=== PATIENT | female | born 1975 | race Two or more races ===

== ENCOUNTER 2020-03-22 13:32 | Outpatient (REF) | payer OTHER, SELFPAY | END 2020-03-22 13:33 | disposition home or self-care (01) | LOC: HO.LAB 13:32 | PROVIDERS: Visit Provider Internal Medicine | DX: Z20.828 Contact with and (suspected) exposure to other viral communicable diseases (principal) | CPT/HCPCS: 87635 ==

== ENCOUNTER 2023-08-17 07:27 | Outpatient (REF) | payer SELFPAY | END 2023-08-17 07:28 | disposition home or self-care (01) | LOC: CF 07:27 | DX: Z13.89 Encounter for screening for other disorder (principal) ==

== ENCOUNTER 2023-08-17 13:19 | Outpatient (AMB) | payer OTHER, SELFPAY ==
[2023-08-17 13:26] VITALS: BP 136/78; PULSE 94; O2SAT 98; BMI 28.2
--- NOTE | 2023-08-17 13:26 | A.OFFVIS_ITS ---
Intake Vital Signs 08/17/23 13:26 Height 5 ft 3 in Weight 159 lb BMI 28.2 BP 136/78 Blood Pressure Location Rt brachial Position Sitting Pulse 94 Pulse Source Pulse Oximeter Pulse Oximetry (%) 98 Oxygen Delivery Method Room Air Intake Visit Reasons: Abnormal CT scan Receiving Clerk Required: No Structural Iron Erector: Structural Iron Erector offered & declined Accompanied by: Self / Same As Patient Allergies lisinopril Adverse Reaction (Intermediate, Uncoded 08/17/23 13:28) Cough Medication List - Last Reconciled 08/17/23 by Isela Batres LPN atorvastatin 20 mg PO DAILY dulaglutide (Trulicity) 1.5 mg subcut QWEEK duloxetine 60 mg PO DAILY hydroxyzine HCl 25 mg PO DAILY loratadine 10 mg PO DAILY metformin ER 500 mg PO BID omeprazole 40 mg PO DAILY valsartan 40 mg PO BID HPI Abnormal CT scan HPI Details Shahla is a pleasant 48-year-old female, minimal smoker, with underlying diabetes and fibromyalgia. She was referred by PCP for pulmonary evaluation after abnormal abdominal CT. CT revealed multiple thin walled cysts. No prior imaging to compare. At the time of the CT she denied any respiratory symptoms suggestive of infection. She does report dyspnea on moderate exertion as well as intermittent dry cough. She denies any history of asthma. She reports multiple family members with autoimmune conditions including lupus. She denies any skin lesions or rashes. She denies any joint pain. She denies any occupational exposures. She reports mild seasonal allergies. [facility] Social History (Updated 08/17/23 @ 13:30 by Isela Batres LPN) Patient Tobacco Use Status: Current someday Tobacco user Tobacco use type: Cigarette Review of Systems Const Denies chills, Denies excessive sweating, Denies fever(s), Denies headache(s) and Denies night sweats Eyes Denies dry eyes, Denies irritation and Denies itchy eyes ENT Reports Normal hearing present, Denies headache(s), Denies nasal congestion, Denies nasal discharge, Denies post nasal drip and Denies sore throat Card Denies chest pain, Denies chest pain at rest, Denies chest pain with activity, Denies claudication, Denies leg edema, Denies orthopnea and Denies paroxysmal nocturnal dyspnea Resp Denies chest congestion, Denies excessive phlegm production, Denies pain on inspiration, Denies pain with cough, Denies stridor and Denies wheezing Musc Denies myalgias Neuro Reports Normal hearing present and Denies headache(s) Endo Denies excessive sweating Bhargav/Lymph Denies lymphadenopathy Aller/Immun Denies itchy eyes, Denies seasonal rhinorrhea and Denies wheezing Physical Exam Vital Signs: Last Vital Signs Pulse 94 08/17/23 13:26 BP 136/78 08/17/23 13:26 Pulse Ox 98 08/17/23 13:26 Oxygen Delivery Method Room Air 08/17/23 13:26 BMI result Body Mass Index 28.2 Const General: cooperative, healthy appearing, comfortable, no acute distress, well developed and alert Orientation/consciousness: patient oriented x3 Limitations: no limitations HEENT Head: Yes normal to inspection, Yes normocephalic and Yes atraumatic Ears: hearing grossly normal bilaterally and external ears normal Eyes General: appearance normal, both eyes and all related structures Eyelids: Yes eyelids normal Sclerae: sclerae normal EOM: EOMs intact bilaterally Neck Neck: Yes normal visual inspection and Yes no lymphadenopathy Lymphatic: no lymphadenopathy noted Chest Chest palpation & inspection: normal inspection of the chest Resp Effort & Inspection: normal respiratory effort, able to speak in complete sentences, no audible wheezes, no cough, no stridor, not tachypneic, no tripod positioning and no use of accessory muscles Auscultation: clear to auscultation bilaterally Cardio Jugular venous distension: no JVD Rate: regular rate Rhythm: regular rhythm Skin Other: warm, dry General skin exam: no rashes or lesions noted Neuro General: patient oriented x3 Cranial nerves: Yes Normal hearing present Cognition (Neuro): normal cognition Gait exam (Neuro): Normal gait present Extrem General: Yes normal to inspection, Yes capillary refill normal, Yes no clubbing, cyanosis or edema and Yes no pedal edema Psych Appearance: grossly normal and well kempt Speech and movement: Normal speech and movement present and Clear speech present Affect: normal affect Attitude: cooperative Thought process: Normal thought process present Thought content: Normal thought content present Insight: Good insight present (Psych) Judgement: Good judgement present (Psych) Assessment & Plan Assessment & Plan (1) Multiple idiopathic cysts of lung: Code(s): J98.4 - Other disorders of lung (2) Dyspnea on exertion: Code(s): R06.09 - Other forms of dyspnea (3) Cough: Code(s): R05.9 - Cough, unspecified Plan Karley presents with incidental finding of thin walled cysts on recent abdominal CT. Will send for dedicated chest CT to get a better picture of possible underlying etiologies of cysts. Will send for PFT to assess for obstructive or restrictive defect, contributing to dyspnea and cough. Will send for labs to assess for connective tissue conditions associated with lung cysts as well as vascular endothelial growth factor D to assess for MULLEN. All questions were answered and patient is in agreement of plan. Will follow up to review results. Orders: Orders Other Ref Test - Misc 08/17/23 J98.4 - Other disorders of lung Complete Blood Count Auto Diff 08/17/23 J98.4 - Other disorders of lung Sjogren's Antibodies 08/17/23 J98.4 - Other disorders of lung MAXIMINO Reflex Titer and Pattern 08/17/23 J98.4 - Other disorders of lung Rheumatoid Factor 08/17/23 J98.4 - Other disorders of lung Coding Level of Care Code New Pt Level 4 (47313) Diagnoses Multiple idiopathic cysts of lung J98.4 Dyspnea on exertion R06.09 Cough R05.9
== END 2023-08-17 14:23 | disposition home or self-care (01) ==
PROVIDERS: PCP Physician Assistant Medical; Visit Provider Nurse Practitioner Family
DX: J98.4 Other disorders of lung (principal); R06.09 Other forms of dyspnea; R05.9 Cough, unspecified
CPT/HCPCS: 99204

== ENCOUNTER 2023-09-21 10:58 | Outpatient (REF) | payer OTHER, SELFPAY ==
[2023-09-21 09:30] VITALS: PULSE 105; RESP 16; O2SAT 97
--- NOTE | 2023-09-21 13:59 | PFT_ITS ---
Flows: FEV1: 94 % of predicted at 2.57 L FVC: 90 % of predicted at 3.05 L FEV1/FVC: 84 % Bronchodilator response: Present in small to medium airways only Volumes: Total lung capacity: 83 % of predicted at 4.18 L Residual volume: 81 % of predicted at 1.13 L Slow vital capacity: 83 % of predicted at 3.05 L Expiratory reserve volume: 82 % of predicted at 0.85 L Diffusion capacity: Normal Impression: No obstructive or restrictive ventilatory defect. No bronchodilator response except in small to medium airways. MTDD
== END 2023-09-21 10:59 | disposition home or self-care (01) ==
LOC: HO.RESP 10:58
PROVIDERS: Visit Provider Nurse Practitioner Family
DX: R05.9 Cough, unspecified (principal); R06.09 Other forms of dyspnea
CPT/HCPCS: 94010; 94640; 94727; 94729

== ENCOUNTER → 2023-09-21 13:59 | Outpatient (BNV) | payer OTHER, SELFPAY | PROVIDERS: Visit Provider Internal Medicine Pulmonary Disease | DX: R06.09 Other forms of dyspnea (principal) | CPT/HCPCS: 94060; 94727; 94729 ==

== ENCOUNTER 2023-11-22 16:34 | Outpatient (REF) | payer OTHER, SELFPAY ==
--- NOTE | ~2023-11-22 | CT_ITS ---
EXAMINATION: CT CHEST WITHOUT CONTRAST CLINICAL INFORMATION: Other disorders of the lungs. COMPARISON: 06/26/2023. TECHNIQUE: Multidetector volumetric CT imaging of the chest was done. Axial MIP volume rendering provided. Sagittal and coronal reformatted images were obtained. This CT examination was performed using dose optimization techniques as appropriate, variously including the following: *Automated exposure control *Adjustment of mA and/or kV according to patient size (this includes techniques or standardized protocols for targeted exams where dose is matched to indication/reason for exam; i.e. extremities or head) *Use of iterative reconstruction technique DLP: 137 mGy-cm FINDINGS: LUNGS: The lungs are clear with no evidence of inflammation or suspicious nodules. Emphysematous changes are seen with mild bronchial thickening. An area of linear scarring is noted at the left apex posteriorly (5:116). Calcified granulomas present right middle lobe (5:229). MEDIASTINUM: The mediastinum is normal. CORONARY ARTERY CALCIFICATION: None. PLEURA: There is no pleural effusion. No pleural mass or thickening. AXILLA chest wall: No lymphadenopathy. Bilateral breast calcifications are present. UPPER ABDOMEN: There is hepatic steatosis with focal fatty sparing around the gallbladder. OSSEOUS STRUCTURES: Unremarkable. CT/CT chest wo IV con IMPRESSION: 1. No suspicious pulmonary nodules are seen. 2. Incidental note made of emphysema, hepatic steatosis and bilateral breast calcifications. Fleischner guidelines were followed.
== END 2023-11-22 16:35 | disposition home or self-care (01) ==
LOC: HO.CT 16:34
PROVIDERS: Visit Provider Nurse Practitioner Family
DX: J98.4 Other disorders of lung (principal); R06.09 Other forms of dyspnea; R05.9 Cough, unspecified
CPT/HCPCS: 71250

== ENCOUNTER 2023-11-30 10:30 | Outpatient (AMB) | payer OTHER, SELFPAY ==
--- NOTE | 2023-11-30 10:49 | MHC.OFFVIS ---
Vital Signs 11/30/23 10:50 Height 5 ft 3 in Weight 155 lb 2 oz BMI 27.5 BP 130/88 Blood Pressure Location Rt brachial Position Sitting Pulse 92 Pulse Source Pulse Oximeter Pulse Oximetry (%) 97 Oxygen Delivery Method Room Air Intake Visit Reasons: dyspnea Allergies lisinopril Adverse Reaction (Intermediate, Uncoded 11/30/23 10:52) Cough HPI HPI dyspnea: Details: Shahla is a pleasant 48-year-old female, minimal smoker, with underlying diabetes and fibromyalgia. She was referred by PCP for pulmonary evaluation after abnormal abdominal CT revealed multiple thin walled cysts. At the last visit, she was sent for dedicated chest CT and presents today to review results. She was also sent for labs to assess for underlying connective tissues disease as well as MULLEN, which were all negative. Today she denies any respiratory symptoms. She denies any pertinent family history. She denies any visits to urgent care or hospitalizations. [facility] Social History Patient Tobacco Use Status: Current someday Tobacco user Tobacco use type: Cigarette Review of Systems Const Denies chills, Denies excessive sweating, Denies fever(s), Denies headache(s) and Denies night sweats Eyes Denies dry eyes, Denies irritation and Denies itchy eyes ENT Reports Normal hearing present and Denies headache(s) Card Denies chest pain, Denies chest pain at rest, Denies chest pain with activity, Denies claudication, Denies leg edema, Denies dyspnea, Denies dyspnea on exertion, Denies orthopnea and Denies paroxysmal nocturnal dyspnea Resp Denies chest congestion, Denies cough, Denies excessive phlegm production, Denies pain on inspiration, Denies pain with cough, Denies dyspnea, Denies dyspnea on exertion, Denies stridor and Denies wheezing Musc Denies myalgias Neuro Reports Normal hearing present and Denies headache(s) Endo Denies excessive sweating Bhargav/Lymph Denies lymphadenopathy Aller/Immun Denies itchy eyes, Denies seasonal rhinorrhea and Denies wheezing Physical Exam Vital Signs: Last Vital Signs Pulse 92 11/30/23 10:50 BP 130/88 11/30/23 10:50 Pulse Ox 97 11/30/23 10:50 Oxygen Delivery Method Room Air 11/30/23 10:50 BMI result Body Mass Index 27.5 Const General: cooperative, healthy appearing, comfortable, no acute distress, well developed and alert Orientation/consciousness: patient oriented x3 Limitations: no limitations HEENT Head: Yes normal to inspection, Yes normocephalic and Yes atraumatic Ears: hearing grossly normal bilaterally and external ears normal Eyes General: appearance normal, both eyes and all related structures Eyelids: Yes eyelids normal Sclerae: sclerae normal EOM: EOMs intact bilaterally Neck Neck: Yes normal visual inspection and Yes no lymphadenopathy Lymphatic: no lymphadenopathy noted Chest Chest palpation & inspection: normal inspection of the chest Resp Effort & Inspection: normal respiratory effort, able to speak in complete sentences, no audible wheezes, no cough, no stridor, not tachypneic, no tripod positioning and no use of accessory muscles Auscultation: clear to auscultation bilaterally Cardio Jugular venous distension: no JVD Rate: regular rate Rhythm: regular rhythm Skin Other: warm, dry General skin exam: no rashes or lesions noted Neuro General: patient oriented x3 Cranial nerves: Yes Normal hearing present Cognition (Neuro): normal cognition Gait exam (Neuro): Normal gait present Extrem General: Yes normal to inspection, Yes capillary refill normal, Yes no clubbing, cyanosis or edema and Yes no pedal edema Psych Appearance: grossly normal and well kempt Speech and movement: Normal speech and movement present and Clear speech present Affect: normal affect Attitude: cooperative Thought process: Normal thought process present Thought content: Normal thought content present Insight: Good insight present (Psych) Judgement: Good judgement present (Psych) Assessment & Plan Assessment & Plan (1) Multiple idiopathic cysts of lung: Code(s): J98.4 - Other disorders of lung Category: Medical Plan At this time Karley denies any respiratory symptoms. She is aware if symptoms develop, to call the office. We reviewed chest which revealed multiple thin walled cysts, although radiologist read as emphysema. Patient with minimal smoking history, will swab for alpha 1 antitrypsin deficiency. Given that patient is asymptomatic, labs are not suggestive of MULLEN or other underlying autoimmune conditions and no pertinent family history, will continue to observe at this time. Will send for repeat chest CT in one year. All questions were answered and patient is in agreement of plan. Will follow up to review results or sooner if needed. Coding Level of Care Code Est Pt Level 4 (06305) Diagnoses Multiple idiopathic cysts of lung J98.4
[2023-11-30 10:50] VITALS: BP 130/88; PULSE 92; O2SAT 97; BMI 27.5
== END 2023-11-30 13:08 | disposition home or self-care (01) ==
PROVIDERS: PCP Physician Assistant Medical; Visit Provider Nurse Practitioner Family
DX: J98.4 Other disorders of lung (principal)
CPT/HCPCS: 99214

== ENCOUNTER → 2023-11-30 10:30 | Outpatient (BNVA) | payer OTHER, SELFPAY | PROVIDERS: Visit Provider Nurse Practitioner Family ==

== ENCOUNTER 2024-10-23 14:27 | Outpatient (REF) | payer OTHER, SELFPAY ==
--- NOTE | ~2024-10-23 | CT_ITS ---
CLINICAL HISTORY: J98.4 - Other disorders of lung CT chest without contrast Comparison: CT/ID/SR - CT CHEST WO IV CON - 11/22/23 16:41 EDT Findings: The heart size is normal. The visualized thyroid and mediastinum are unremarkable. Breast calcifications again noted. There is mild centrilobular emphysema. No pulmonary nodules are noted. A calcified granuloma seen in the right upper lobe. Hepatic steatosis has apparently resolved. No acute fractures. IMPRESSION: 1. Interval resolution of hepatic steatosis. 2. Mild centrilobular emphysema. 3. No suspicious pulmonary nodules are noted. 4. Calcified granuloma right upper lobe. This document has been electronically signed by: Leodan Estrada MD on 10/24/2024 12:19:58
--- OUTSIDE RECORDS SUMMARY | 2024-10-23 14:31 | XMS_ITS | Clinical Summary ---
Author Organization [facility] it Address [address] [place] [address] Care Team Providers Care Service Worker Name Role Phone Unavailable Primary Care Provider Unavailabl e Medications DULoxetine (CYMBALTA) [address] capsule Take 1 capsule by mouth once daily 30 each 09/01/2024 Active Surgical History Surgery Date Site/Laterality Comments SECTION PROCEDURE: HISTORICAL ; COMMENT: 1992 BREAST BIOPSY PROCEDURE: MO BX BREAST NEEDLE CORE W/O IMAGING GUIDANCE SPX TUBAL LIGATION PROCEDURE: HISTORICAL TUBAL LIGATION BREAST BIOPSY Left PROCEDURE: BX BREAST; PERC NEEDLE CORE W/IMAG GUID; COMMENT: b9 BREAST SURGERY 2012 Left PROCEDURE: MO UNLISTED PROCEDURE BREAST; COMMENT: b9 Medical History Medical History Date Comments High cholesterol DX:High cholest nasim Family History Medical History Relation Name Comments Diabetes Father Hypertension Father Other cancer Father's side 1 leukemia Heart attack Father's side 2 Breast cancer Other m cousin 45 Diabetes Paternal Grandfather Diabetes Paternal Grandmother Relation Name Status Comments Brother Alive A&W Daughter 1 Alive A&W Daughter 2 Alive A&W Daughter 3 Alive A&W Father hypoglycemic ep isode, ?diabetic coma; DMII, HTN Father's side 1 Father's side 2 Mother Alive osteoporosis Other m cousin 45 Alive Paternal Grandfather Paternal Grandmother Sister Alive A&W Son Alive A&W Social History Tobacco Use Types Packs/Day Years Used Date Smoking Tobacco: Never Smokeless Tobacco: Never Alcohol Use Standard Drinks/Week Comments No 0 (1 standard drink = 0.6 oz pur e alcohol) Comments Unknown Sex and Gender Information Value Date Recorded Sex Assigned at Not on file Legal Sex Female 2:28 AM EST Gender Identity Not on file Sexual Orientation Not on file Obstetrics History Last Filed Vital Signs Vital Sign Reading Time Taken Comments Blood Pressure 108/68 07/10/2023 1:25 PM EST provider will rechk Pulse 106 07/10/2023 1:25 PM EST Temperature - - Respiratory Rate - - Oxygen Saturation - - Inhaled Oxygen Concentration - - Weight 70.8 kg (156 lb) 07/10/2023 1:25 PM EST Height 157.5 cm (5' 2 ) 07/10/2023 1:25 PM EST Body Mass Index 28.53 07/10/2023 1:25 PM EST Plan of Treatment Health Maintenance Due Date Last Done Comments Diabetes: Annual GFR (Glomerular Filtration Rate) 1976 Diabetes: Annual Foot Exam 1986 Diabetes: Annual Retina Eye Exam 1986 Hepatitis A Vaccines (1 of 2 - Risk 2-dose series) 1995 Hepatitis B Vaccines (1 of 3 - 19+ 3-dose series) 1995 Pneumococcal Vaccine: Pediatrics (0 to 5 Years) and At-Risk Patients (6 to 64 Years) (1 of 2 - PCV) 1995 Cervical Cancer Screening: Pap Smear 1997 Cholesterol Screening (Lipid Panel) 05/07/2022 Colorectal Cancer Screening: Colonoscopy 05/07/2022 Depression Screening 05/07/2022 HIV Screening 05/07/2022 Hepatitis C Screening 05/07/2022 Social Influencers of Health Screening 05/07/2022 Diabetes: Annual Urine Albumin-Creatinine Ratio (uACR) 05/20/2022 Diabetes: Blood Sugar Control Test (HGBA1C) 05/20/2022 COVID-19 Vaccine ( season) 2024 05/10/2021, 08/05/2020, 07/15/2020 Breast Cancer Screening 08/11/2024 08/12/19 23, 07/28/2022, 07/11/2022, Additional history exists Influenza Vaccine (Season Ended) 2025 DTaP,Tdap,and Td Vaccines (3 - Td or Tdap) 05/03/2031 05/03/2021, 12/07/2008 HIB Vaccines Aged Out No longer eligi ble based on patient's age to complete this topic HPV Vaccines Aged Out No longer eligi ble based on patient's age to complete this topic IPV Vaccines Aged Out No longer eligi ble based on patient's age to complete this topic MMR Vaccines Aged Out No longer eligi ble based on patient's age to complete this topic Meningococcal ACWY Vaccine Aged Out N o longer eligible based on patient's age to complete this topic Meningococcal B Vaccine Aged Out No l onger eligible based on patient's age to complete this topic RSV Immunization Patients Under 20 months Aged Out No longer eligible based on patient's age to complete this topic Varicella Vaccines Aged Out No longer eligible based on patient's age to complete this topic Procedures Procedure Name Priority Date/Time Associated Diagnosis Comments DX MAMMO INCL CAD BI Routine 08/11/2022 1:45 PM EST Other abnormal and inconclusive findings on diagnostic imaging of breast from Last 3 Months or Most Recently Relevant to Health Maintenance Results * DX MAMMO INCL CAD BI (08/11/2022 1:45 PM EST) Anatomical Region Laterality Modality Mammography 07/28/2022 2:08 PM EST Narrative 08/15/2022 2:10 PM EDT EXAM: Ultrasound guided core-needle biopsy of the right and left breast. HISTORY: Ultrasound-guided biopsy for right breast 6:00 mass and left breast 12:00 mass COMPARISON: Ultrasound from 07/28/2022 CONSENT: The time-out, which included the woman's full name, date of , description of the expected procedure and procedure site, was performed immediately before the procedure to confirm woman's identity. Informed consent was obtained. PROCEDURE: An ultrasound guided biopsy was performed for the right breast 6:00 mass. The patient was placed in the supine position and the lesion was localized using real-time sonography. The skin was prepped in the usual manner and draped. Subcutaneous lidocaine was administered at the expected entry site. Additional subcutaneous anesthesia was provided. A skin garfield was made using a scalpel. A 14-gauge spring breast biopsy needle was advanced to the preselected lesion. 4 core biopsy specimens were obtained and post-fire images documenting needle placement were recorded. Biopsy marker clip was inserted into the biopsy cavity under ultrasound guidance. Postprocedure mammogram demonstrates clip. An ultrasound guided biopsy was performed for the left breast 12:00 mass. The patient was placed in the supine position and the lesion was localized using real-time sonography. The skin was prepped in the usual manner and draped. Subcutaneous lidocaine was administered at the expected entry site. Additional subcutaneous anesthesia was provided. A skin garfield was made using a scalpel. A 14-gauge spring breast biopsy needle was advanced to the preselected lesion. 5 core biopsy specimens were obtained and post-fire images documenting needle placement were recorded. Biopsy marker clip was inserted into the biopsy cavity under ultrasound guidance. Postprocedure mammogram demonstrates clip. Following the procedure, the biopsy site was compressed and cleaned. Steri- Strips and sterile gauze were applied and the patient was given post-biopsy instructions. The patient tolerated the procedure well and left the department in good condition. Specimens were placed in formalin and sent for pathologic analysis. Permanent images are saved to PACS. IMPRESSION: IMPRESSION: Successful ultrasound-guided biopsy of a right breast 6:00 mass in left breast 12:00 mass SURGICAL PATHOLOGY REPORT DIAGNOSIS: 1. ??Right breast 6:00--fibroadenoma 2. Left breast 12:00 --fibroadenoma Pathology findings are concordant with imaging findings. BIRADS category 2 - Benign findings RECOMMENDATION: Routine annual screening mammography These findings were discussed with the patient via telephone on 08/15/2022 at 9:18 AM Procedure Note Anika Madrid MD - 07/09/2023 EXAM: Ultrasound guided core-needle biopsy of the right and left breast. HISTORY: Ultrasound-guided biopsy for right breast 6:00 mass and leftbreast 12:00 mass COMPARISON: Ultrasound from 07/28/2022 CONSENT: The time-out, which included the woman's full name, date of ,description of the expected procedure and procedure site, was performed immediately before theprocedure to confirm woman's identity. Informed consent was obtained. PROCEDURE: An ultrasound guided biopsy was performed for the right breast 6:00mass. The patient was placed in the supine position and the lesion was localizedusing real-time sonography. The skin was prepped in the usual manner and draped. Subcutaneous lidocaine was administered at the expected entry site.Additional subcutaneous anesthesia was provided. A skin garfield was made using a scalpel. A 14-gaugespring breast biopsy needle was advanced to the preselected lesion. 4 core biopsy specimenswere obtained and post-fire images documenting needle placement were recorded. Biopsy marker clip was inserted into the biopsy cavity under ultrasoundguidance. Postprocedure mammogram demonstrates clip. An ultrasound guided biopsy was performed for the left breast 12:00mass. The patient was placed in the supine position and the lesion was localizedusing real-time sonography. The skin was prepped in the usual manner and draped. Subcutaneous lidocaine was administered at the expected entry site.Additional subcutaneous anesthesia was provided. A skin garfield was made using a scalpel. A 14-gaugespring breast biopsy needle was advanced to the preselected lesion. 5 core biopsy specimenswere obtained and post-fire images documenting needle placement were recorded. Biopsy marker clip was inserted into the biopsy cavity under ultrasoundguidance. Postprocedure mammogram demonstrates clip. Following the procedure, the biopsy site was compressed and cleaned.Steri-Strips and sterile gauze were applied and the patient was given post-biopsy instructions. The patient tolerated the procedure well and left the department in goodcondition. Specimens were placed in formalin and sent for pathologic analysis. Permanent images are saved to PACS. IMPRESSION: IMPRESSION: Successful ultrasound-guided biopsy of a right breast 6:00 mass in leftbreast 12:00 mass SURGICAL PATHOLOGY REPORT DIAGNOSIS: 1. Right breast 6:00--fibroadenoma 2. Left breast 12:00 --fibroadenoma Pathology findings are concordant with imaging findings. BIRADS category 2 - Benign findings RECOMMENDATION: Routine annual screening mammography These findings were discussed with the patient via telephone on 08/15/2022 9:18 AM us Chico Stone MD IMG BI PROCEDURES Final Result from Last 3 Months or Most Recently Relevant to Health Maintenance
== END 2024-10-23 14:28 | disposition home or self-care (01) ==
LOC: HO.CT 14:27
PROVIDERS: PCP Internal Medicine; Visit Provider Nurse Practitioner Family
DX: J98.4 Other disorders of lung (principal)
CPT/HCPCS: 71250

== ENCOUNTER → 2024-10-23 14:29 | Outpatient (BNV) | payer OTHER, SELFPAY | PROVIDERS: PCP Internal Medicine; Visit Provider Radiology Diagnostic Radiology | DX: J84.10 Pulmonary fibrosis, unspecified (principal) | CPT/HCPCS: 71250 ==